=== PATIENT | female | born 1955 | race Caucasian/White ===

== ENCOUNTER 2017-08-25 20:58 | Emergency (ER) | payer OTHER ==
[2017-08-25 21:05] VITALS: RESP 16; TEMP 97.9
--- NOTE | 2017-08-25 21:33 | EDPHY ---
H & P Stated Complaint: c/o cramping/pain/swelling R calf x 5 days, tonight sx became worse Time Seen by Provider: 08/25/17 21:32 HPI/ROS: HPI: This is a 62-year-old female who presents with Chief Complaint: c/o cramping/pain/swelling R calf x 5 days, tonight sx became worse Location: Right calf Quality: Cramping Duration: 5 days Signs and Symptoms:+ swelling, + pain, no redness, no shortness of breath, no change in color of skin Timing: Gradual onset Severity: Moderate Context: Patient complains of right calf cramping, sharp pain that is nonradiating, accompanied by swelling that is gradually worsening over the last 5 days. She denies chest pain or shortness of breath. She she has traveled in the last 2 months 3 times via plane. She is on hormone replacement therapy. Nonsmoker. Modifying Factors: Stretching with no relief Comment: ROS: Constitutional: No fever, no chills, no weight loss Eyes: No blurred vision Respiratory: No shortness of breath, no cough Cardiovascular: No chest pain Gastrointestinal: No nausea, no vomiting no diarrhea Genitourinary: No dysuria Extremities: No myalgias Neurologic: No weakness, no numbness Skin: No rashes Hematologic: No bruising, no bleeding MEDICAL/SURGICAL/SOCIAL HISTORY: Medical history: Hypothyroidism Surgical history: Denies Social history: CONSTITUTIONAL: Pleasant well-appearing adult white female, awake and alert, no obvious distress HEENT: Atraumatic and normocephalic, PERRL, EOMI. Tympanic membranes clear. Oropharynx clear, no exudate and moist pink mucosa. Airway patent. No lymphadenopathy. No meningismus. Cardiovascular: Normal S1/S2, regular rate, regular rhythm, without murmur rub or gallop. PULMONARY/CHEST: Symmetrical and nontender. Clear to auscultation bilaterally. Good air movement. No accessory muscle usage. ABDOMEN: Soft, nondistended, nontender, no rebound, no guarding, no peritoneal signs, no masses or organomegaly. No CVAT. EXTREMITIES: 2/2 pulses, right calf mildly enlarged when compared to left calf. No palpable cord. Calf tenderness present. Positive Homans sign. No varicose veins. Right knee no effusion; no joint line tenderness; stable ligamentous exam. no deformities, no clubbing, no cyanosis or edema. NEUROLOGICAL: no focal neuro deficits. GCS 15. SKIN: Warm and dry, no erythema. no rash. Good capillary refill. Source: Patient Exam Limitations: No limitations - Medical/Surgical History Hx Asthma: No Hx Chronic Respiratory Disease: No Hx Diabetes: No Hx Cardiac Disease: No Hx Renal Disease: No Hx Cirrhosis: No Hx Alcoholism: No Hx HIV/AIDS: No Hx Splenectomy or Spleen Trauma: No Other PMH: hypothyroid - Social History Smoking Status: Never smoked Constitutional: Initial Vital Signs Temperature (C) 36.6 C 08/25/17 21:00 Heart Rate 80 08/25/17 21:00 Respiratory Rate 16 08/25/17 21:00 Blood Pressure 129/76 H 08/25/17 21:00 O2 Sat (%) 95 08/25/17 21:00 O2 Delivery Mode Room Air Allergies/Adverse Reactions: No Known Allergies Allergy (Unverified 08/25/17 21:05) Home Medications: Medication Instructions Recorded Hormone Replacement 08/25/17 Levothyroxine 08/25/17 Rivaroxaban [Xarelto] 1 each PO ONCE #1 tab.ds.pk 08/25/17 Medical Decision Making - Diagnostics Imaging Results: Imaging Impressions Extremity Venous Study 08/25/17 21:33 Impression: There is deep venous thrombosis involving the paired peroneal veins , from the level of the ankle to the upper calf. Findings were discussed with Maggy Oleary PA-C at 22:19, on 08/25/2017. ED Course/Re-evaluation: Labs, right lower extremity ultrasound ordered No signs of neurovascular compromise/tenting of skin/compartment syndrome/ extremities and joints examined above and below area of concern and are neurovascularly intact. 2230: Called by Dr. Pollock radiologist who advised deep venous thrombosis in peroneal veins Labs reviewed and show no electrolyte imbalance and Renal function reviewed within normal limits Started on Xarelto with close follow-up with primary care provider No hypoxia/tachycardia to suggest pulmonary embolism. Patient has risk factors for DVT. Eat Differential Diagnosis: Leg swelling including but not limited to hypoalbuminemia, congestive heart failure, cor pulmonale, chronic venous stasis and DVT. - Data Points Laboratory Results: Laboratory Results 08/25/17 22:58 08/25/17 22:58 08/25/17 08/25/17 22:58 22:58 WBC 7.85 10^3/uL 10^3/uL (3.80-9.50) RBC 3.77 10^6/uL L 10^6/uL (4.18-5.33) Hgb 12.2 g/dL L g/dL (12.6-16.3) Hct 36.2 % L % (38.0-47.0) MCV 96.0 fL fL (81.5-99.8) MCH 32.4 pg pg (27.9-34.1) MCHC 33.7 g/dL g/dL (32.4-36.7) RDW 12.1 % % (11.5-15.2) Plt Count 197 10^3/uL 10^3/uL (150-400) MPV 9.3 fL fL (8.7-11.7) Neut % (Auto) 57.8 % % (39.3-74.2) Lymph % (Auto) 32.2 % % (15.0-45.0) Gillespie % (Auto) 7.8 % % (4.5-13.0) Eos % (Auto) 1.3 % % (0.6-7.6) Baso % (Auto) 0.6 % % (0.3-1.7) Nucleat RBC Rel Count 0.0 % % (0.0-0.2) Absolute Neuts (auto) 4.54 10^3/uL 10^3/uL (1.70-6.50) Absolute Lymphs (auto) 2.53 10^3/uL 10^3/uL (1.00-3.00) Absolute Monos (auto) 0.61 10^3/uL 10^3/uL (0.30-0.80) Absolute Eos (auto) 0.10 10^3/uL 10^3/uL (0.03-0.40) Absolute Basos (auto) 0.05 10^3/uL 10^3/uL (0.02-0.10) Absolute Nucleated RBC 0.00 10^3/uL 10^3/uL (0-0.01) Immature Gran % 0.3 % % (0.0-1.1) Immature Gran # 0.02 10^3/uL 10^3/uL (0.00-0.10) Sodium 142 mEq/L mEq/L (134-144) Potassium 3.8 mEq/L mEq/L (3.5-5.2) Chloride 104 mEq/L mEq/L (97-110) Carbon Dioxide 27 mEq/l mEq/l (22-31) Anion Gap 11 mEq/L mEq/L (8-16) BUN 12 mg/dL mg/dL (7-23) Creatinine 0.7 mg/dL mg/dL (0.6-1.0) Estimated GFR > 60 Glucose 85 mg/dL mg/dL (70-100) Calcium 8.9 mg/dL mg/dL (8.5-10.4) Magnesium 1.9 mg/dL mg/dL (1.6-2.3) Medications Given: Discontinued Medications Rivaroxaban (Xarelto) 15 mg PO EDNOW ONE Stop: 08/25/17 22:28 Last Admin: 08/25/17 23:30 Dose: 15 mg Departure - Departure Disposition: Home, Routine, Self-Care Clinical Impression: DVT (deep venous thrombosis) Qualifiers: DVT location: lower extremity Affected thrombotic vein of extremity: other lower extremity vein Chronicity: acute Laterality: right Qualified Code(s): I82.491 - Acute embolism and thrombosis of other specified deep vein of right lower extremity Condition: Good Instructions: Deep Venous Thrombosis (ED) Additional Instructions: Please take all medications as directed. Avoid long distance travel. Follow-up with your primary care provider within 1 week. If you should develop shortness of breath, chest pain, increased swelling and warmth in the right lower extremity; please return to the emergency room immediately. Referrals: Yue Heaton PA [Primary Care Provider] - As per Instructions Prescriptions: Rivaroxaban [Xarelto] 1 each PO ONCE #1 tab.ds.pk
[2017-08-25] MEDS ORDERED: RIVAROXABAN 15 MG TAB PO ONE (22:27)
[2017-08-25 23:04] LABS: % IMMATURE GRANULYOCYTES 0.3 % (0.0-1.1); ABSOLUTE IMMATURE GRANULOCYTES 0.02 10^3/uL (0.00-0.10); ADD DIFF? NO; ADD MORPH? NO; ADD SCAN? NO; ATYPICAL LYMPHOCYTE FLAG 0 (0-99); FRAGMENT RBC FLAG 0 (0-99); HEMATOCRIT 36.2 % (38.0-47.0); HEMOGLOBIN 12.2 g/dL (12.6-16.3); LEFT SHIFT FLG 0 (0-99); LIPEMIA HEMOLYSIS FLAG 80 (0-99); MEAN CELL HEMOGLOBIN 32.4 pg (27.9-34.1); MEAN CELL HEMOGLOBIN CONCENTR. 33.7 g/dL (32.4-36.7); MEAN PLATELET VOLUME 9.3 fL (8.7-11.7); PLATELET CLUMPS FLAG 0 (0-99); PLATELET COUNT 197 10^3/uL (150-400); RED BLOOD CELL COUNT 3.77 10^6/uL (4.18-5.33); RED CELL DISTRIBUTION WIDTH 12.1 % (11.5-15.2)
[2017-08-25 23:22] LABS: ANION GAP 11 mEq/L (8-16); CALCIUM 8.9 mg/dL (8.5-10.4); CARBON DIOXIDE 27 mEq/l (22-31); CHLORIDE 104 mEq/L (97-110); CREATININE 0.7 mg/dL (0.6-1.0); GLOMERULAR FILTRATION RATE > 60; GLUCOSE 85 mg/dL (70-100); MAGNESIUM 1.9 mg/dL (1.6-2.3); POTASSIUM 3.8 mEq/L (3.5-5.2); SODIUM 142 mEq/L (134-144)
[2017-08-25 23:50] VITALS: BP 143/80; PULSE 72; O2SAT 96
== END 2017-08-25 23:48 | disposition home or self-care (01) ==
DX: I82.491 Acute embolism and thrombosis of other specified deep vein of right lower extremity (principal); Z79.01 Long term (current) use of anticoagulants

== ENCOUNTER → 2017-09-14 | Outpatient (CLI) | payer OTHER | LOC: BMCIMAGING 12:41 | PROVIDERS: ATTEND Physician Assistant | DX: Z12.31 Encounter for screening mammogram for malignant neoplasm of breast (principal); I82.491 Acute embolism and thrombosis of other specified deep vein of right lower extremity | CPT/HCPCS: G0202 ==

== ENCOUNTER → 2018-09-23 | Outpatient (CLI) | payer OTHER | LOC: BMCIMAGING 14:27 | PROVIDERS: ATTEND Family Medicine | DX: Z12.31 Encounter for screening mammogram for malignant neoplasm of breast (principal) ==